=== PATIENT | male | born 1970 | race Asian ===

== ENCOUNTER 2018-03-16 09:12 | Outpatient (CLI) | payer BC ==
[2018-03-16 10:03] LABS: PLATELET COUNT 237 K/uL (142-355)
[2018-03-16 10:07] LABS: POTASSIUM 4.1 mmol/L (3.6-5.2)
== END 2018-03-16 21:20 | disposition home or self-care (01) ==
LOC: LABW 09:12
PROVIDERS: Internal Medicine
DX: R10.32 Left lower quadrant pain (principal); M54.5 Low back pain
CPT/HCPCS: 36415; 80053; 81000; 85027; Q9963

== ENCOUNTER 2018-03-23 08:04 | Day surgery (SDC) | payer BC | END 2018-03-23 10:20 | disposition home or self-care (01) | LOC: OR 08:04 | PROC: 0DBK8ZZ Excision of Ascending Colon, Via Natural or Artificial Opening Endoscopic (ICD-10-PCS; principal; 2018-03-23) | DX: D17.5 Benign lipomatous neoplasm of intra-abdominal organs (principal); K64.8 Other hemorrhoids; K62.89 Other specified diseases of anus and rectum; K92.1 Melena; K62.5 Hemorrhage of anus and rectum; Z12.11 Encounter for screening for malignant neoplasm of colon | CPT/HCPCS: J2250; J2704 ==